=== PATIENT | male | born 1965 | race Two or more races ===

== ENCOUNTER 2017-08-16 08:26 | Emergency (ER) | payer BC ==
[~2017-08-16] VITALS: Ht 167.6 cm; Wt 102.1 kg
--- NOTE | 2017-08-16 08:40 | NUR ---
PRESENTS TO ER C/O LOWER ABDOMINAL PAIN, RADIATES TO BACK. ALSO C/O DIARRHEA ~ 10 DAYS. A/OX 4. BREATHING EVEN AND UNLABORED. NO SOB, NAD, VITALS STABLE. SAFETY AND COMFORT MEASURES IN PLACE. AWAITING MD ORDERS.
--- NOTE | 2017-08-16 09:10 | NUR ---
SUPPORT WORKER AT BEDSIDE FOR BLOOD DRAW
[2017-08-16 09:18] LABS: BASOPHILS % (AUTO) 0.6 % (0.0-2.0); EOSINOPHILS % (AUTO) 6.9 % (0.0-6.0); HEMATOCRIT 41 % (39-51); HEMOGLOBIN 14.3 g/dL (13.5-17.5); LYMPHOCYTES # (AUTO) 1.9 /CMM (0.8-4.8); LYMPHOCYTES % (AUTO) 23.5 % (20.0-44.0); MEAN CORPUSCULAR HGB CONC 35 g/dl (31.0-36.0); MEAN CORPUSCULAR VOLUME 93 fL (80-96); MONOCYTES # (AUTO) 0.8 /CMM (0.1-1.30); PLATELET COUNT (AUTO) 243 /CMM (150-450); RDW COEFFICIENT OF VARIATION 12.3 (11.5-15.0); RED BLOOD CELL COUNT(AUTO) 4.41 MIL/uL (4.5-6.0); WHITE BLOOD COUNT (AUTO) 8.3 K/uL (4.3-11.0)
[2017-08-16 09:20] LABS: APPEARANCE,URINE Clear (CLEAR); BILIRUBIN,URINE Negative (NEGATIVE); BLOOD, URINE Negative Ery/uL (NEGATIVE); COLOR,URINE Yellow (YELLOW); KETONES,URINE Negative (NEGATIVE); LEUKOCYTE ESTERASE ,URINE Negative (NEGATIVE); NITRITE, URINE Negative (NEGATIVE); PROTEIN,URINE 30 mg/dl (NEGATIVE); UGLUCOSE Negative (NEGATIVE); UROBILINOGEN,URINE 0.2 EU/dL (0.2)
--- NOTE | 2017-08-16 09:20 | NUR ---
PATIENT TAKEN TO CT VIA WHEELCHAIR.
[2017-08-16 09:24] LABS: RBC,URINE 0-2 /HPF (0-2); WBC,URINE 0-3 /HPF (0-3)
[2017-08-16 09:25] LABS: BACTERIA,URINE None seen /HPF (None Seen); SQUAMOUS EPITHELIAL CELL,UR Few /HPF (None Seen)
--- NOTE | 2017-08-16 09:27 | NUR ---
PATIENT RETURNED FROM CT IN STABLE CONDITION.
[2017-08-16 09:28] LABS: CALCIUM, SERUM 9.5 mg/dL (8.5-10.1); POTASSIUM 4.1 mmol/L (3.5-5.1)
[2017-08-16 09:33] LABS: ALBUMIN 3.7 g/dL (3.4-5.0); BILIRUBIN,DIRECT 0.1 mg/dL (0.0-0.2); BILIRUBIN,TOTAL 0.6 mg/dL (0.2-1.0); TOTAL PROTEIN, SERUM 8.1 g/dL (6.4-8.2)
[2017-08-16] MEDS ORDERED: KETOROLAC TROMETHAMINE INJ 30 MG/ML VIAL ONE (10:37)
[2017-08-16] MEDS ORDERED: KETOROLAC TROMETHAMINE INJ 60 MG/2 ML VIAL IM ONE (11:00)
[2017-08-16 11:23] VITALS: BP 132/81
--- NOTE | 2017-08-16 11:24 | NUR ---
Patient discharged to home in stable condition. Written and verbal after care instructions given. Patient verbalizes understanding of instruction.
== END 2017-08-16 11:23 | disposition home or self-care (01) ==
LOC: ER 08:40
DX: K57.32 Diverticulitis of large intestine without perforation or abscess without bleeding (principal); I10 Essential (primary) hypertension; E78.5 Hyperlipidemia, unspecified; F17.210 Nicotine dependence, cigarettes, uncomplicated
CPT/HCPCS: 36415; 74176; 80048; 80076; 81001; 83690; 85025; 96372; 99285; A4606; J1885; Z7610; 81000-TC

== ENCOUNTER 2017-11-19 10:34 | Emergency (ER) | payer BC ==
[~2017-11-19] VITALS: Ht 170.2 cm; Wt 83.9 kg
--- NOTE | 2017-11-19 10:59 | NUR ---
URINE SAMPLE COLLECTED
[2017-11-19] MEDS ORDERED: KETOROLAC TROMETHAMINE 15 MG/ML VIAL ONE (11:15)
[2017-11-19] MEDS ORDERED: ONDANSETRON HCL/PF 4 MG/2 ML VIAL ONE (11:15)
[2017-11-19 11:29] LABS: BASOPHILS % (AUTO) 0.7 % (0.0-2.0); EOSINOPHILS % (AUTO) 5.8 % (0.0-6.0); HEMATOCRIT 42 % (39-51); HEMOGLOBIN 14.3 g/dL (13.5-17.5); LYMPHOCYTES # (AUTO) 2.7 /CMM (0.8-4.8); MEAN CORPUSCULAR HGB CONC 34 g/dl (31.0-36.0); MEAN CORPUSCULAR VOLUME 91 fL (80-96); MONOCYTES # (AUTO) 0.5 /CMM (0.1-1.30); MONOCYTES % (AUTO) 9.1 % (2.0-12.0); NEUTROPHILS # (AUTO) 2.2 /CMM (1.8-8.9); NEUTROPHILS % (AUTO) 39.4 % (43.0-81.0); PLATELET COUNT (AUTO) 263 /CMM (150-450); RDW COEFFICIENT OF VARIATION 12.2 (11.5-15.0); WHITE BLOOD COUNT (AUTO) 5.7 K/uL (4.3-11.0)
[2017-11-19] MEDS ORDERED: ONDANSETRON HCL/PF 4 MG/2 ML VIAL IVP ONE (11:30)
[2017-11-19] MEDS ORDERED: KETOROLAC TROMETHAMINE INJ 30 MG/ML VIAL IV ONE (11:30)
[2017-11-19] MEDS ORDERED: IV NS 0.9% 1,000 ML BAG IV ONE (11:30)
[2017-11-19 11:31] LABS: APPEARANCE,URINE Clear (CLEAR); BILIRUBIN,URINE Negative (NEGATIVE); BLOOD, URINE Negative Ery/uL (NEGATIVE); COLOR,URINE Yellow (YELLOW); KETONES,URINE Negative (NEGATIVE); LEUKOCYTE ESTERASE ,URINE Negative (NEGATIVE); NITRITE, URINE Negative (NEGATIVE); PROTEIN,URINE Negative (NEGATIVE); UGLUCOSE Negative (NEGATIVE); UROBILINOGEN,URINE 0.2 EU/dL (0.2)
[2017-11-19 11:39] LABS: CALCIUM, SERUM 9.3 mg/dL (8.5-10.1)
[2017-11-19 11:43] LABS: INR 0.89 (0.85-1.15)
[2017-11-19 11:44] LABS: ALBUMIN 3.9 g/dL (3.4-5.0); BILIRUBIN,DIRECT 0.1 mg/dL (0.0-0.2); BILIRUBIN,TOTAL 0.4 mg/dL (0.2-1.0); TOTAL PROTEIN, SERUM 7.9 g/dL (6.4-8.2)
[2017-11-19] MEDS ORDERED: METRONIDAZOLE 500 MG TABLET ONE (12:58)
[2017-11-19] MEDS ORDERED: CIPROFLOXACIN HCL 500 MG TABLET ONE (12:58)
[2017-11-19] MEDS ORDERED: CIPROFLOXACIN HCL 250 MG TABLET PO ONE (13:00)
[2017-11-19] MEDS ORDERED: METRONIDAZOLE 500 MG TABLET PO ONE (13:00)
[2017-11-19 13:06] VITALS: BP 152/80
--- NOTE | 2017-11-19 13:07 | NUR ---
Patient discharged to home in stable condition. Written and verbal after care instructions given. Patient verbalizes understanding of instruction.IV removed. Catheter intact and site benign. Pressure and 4x4 applied to site. No bleeding noted.
== END 2017-11-19 13:07 | disposition home or self-care (01) ==
LOC: ER 10:36
DX: K57.92 Diverticulitis of intestine, part unspecified, without perforation or abscess without bleeding (principal); I10 Essential (primary) hypertension; F10.10 Alcohol abuse, uncomplicated; F17.200 Nicotine dependence, unspecified, uncomplicated; Y90.9 Presence of alcohol in blood, level not specified
CPT/HCPCS: 36415; 74176; 80048; 80076; 81001; 83690; 85025; 85730; 86850; 96374; 96375; 99285; A4606; J1885; J2405; J7030; Z7610; 81000-TC

== ENCOUNTER 2018-03-04 22:27 | Emergency (ER) | payer BC ==
[~2018-03-04] VITALS: Ht 167.6 cm; Wt 108.4 kg
--- NOTE | 2018-03-04 22:40 | NUR ---
PT PRESENTED TO THE ER WITH A C/O RT EYE DISCOMFORT S/P FEELING ITCHY APPROX 1 HR ZOOKEEPER. PT TOOK VISINE AND BENADRYL PT.
[2018-03-04] MEDS ORDERED: FLUORESCEIN SODIUM OPHTH 1 EA STRIP ONE (23:28)
[2018-03-04] MEDS ORDERED: TETRACAINE HCL/PF 0.5% UD 2 ML BOTTLE ONE (23:28)
[2018-03-04] MEDS ORDERED: TETRACAINE HCL/PF 0.5% UD 2 ML BOTTLE RIGHTEYE ONE (23:30)
[2018-03-04] MEDS ORDERED: FLUORESCEIN SODIUM OPHTH 1 EA STRIP OP ONE (23:30)
[2018-03-04] MEDS ORDERED: TONO PEN in ED SUPPLY ONICELL 1 EA MC ONE (23:30)
--- NOTE | 2018-03-04 23:30 | NUR ---
SLIT LAMP, TETRACAINE, FLOUR-SCENE STRIP, AND ALDEN PEN ARE ALL AT THE BEDSIDE FOR MD.
[2018-03-05 00:45] VITALS: BP 147/89
== END 2018-03-05 00:46 | disposition home or self-care (01) ==
LOC: ER 22:27
DX: H10.11 Acute atopic conjunctivitis, right eye (principal); I10 Essential (primary) hypertension; E78.00 Pure hypercholesterolemia, unspecified; F10.10 Alcohol abuse, uncomplicated; F17.200 Nicotine dependence, unspecified, uncomplicated; Y90.9 Presence of alcohol in blood, level not specified
CPT/HCPCS: 99283; A4606; Z7610

== ENCOUNTER 2020-09-21 20:58 | Inpatient (IN) | payer BC, MEDICAID, MEDICARE ==
[~2020-09-21] VITALS: Ht 167.6 cm; Wt 119.3 kg
--- NOTE | 2020-09-21 21:08 | NUR ---
PT WAS REFERRED FROM AN URGENT CARE HE PRESENTED EARLIER FOR C/O CP FOR FURTHEREVAL ON HIS ABNORMAL EKG AND TO R/O ACS. PT A, OX4, AMBULATORY TO BED 2 ER. REPORTED HX OF COVID 19 BACK IN JANUARY. AND EVER SICNE HAD ON AND OFF CP . THIS GOT WORSENED WHEN HE REC'D HIS FIRST DOSE OF COVID VACCINE ON 09/10/20. PT CURRENTLY W/ CO L SIDED CP, NON RADATING 06/05 , AND OCCASIONAL SOB. PT WAS PLACED IN BED 2 ER , ON A MONITOR . W/ SLIGHT HIGH BP. WILL CONT TO MONITOR
[2020-09-21 21:44] LABS: BASOPHILS # (AUTO) 0.1 K/uL (0.0-0.2); BASOPHILS % (AUTO) 0.9 % (0.0-2.0); EOSINOPHILS % (AUTO) 3.4 % (0.0-6.0); HEMATOCRIT 41 % (39-51); LYMPHOCYTES % (AUTO) 43.4 % (20.0-44.0); MEAN CORPUSCULAR HGB CONC 34 g/dl (31.0-36.0); MEAN CORPUSCULAR VOLUME 93 fL (80-96); MONOCYTES # (AUTO) 0.7 K/uL (0.1-1.30); MONOCYTES % (AUTO) 10.2 % (2.0-12.0); NEUTROPHILS # (AUTO) 2.9 K/uL (1.8-8.9); NEUTROPHILS % (AUTO) 42.1 % (43.0-81.0); PLATELET COUNT (AUTO) 242 K/uL (150-450); WHITE BLOOD COUNT (AUTO) 6.9 K/uL (4.3-11.0)
[2020-09-21 21:53] LABS: CALCIUM, SERUM 9.4 mg/dL (8.5-10.1); POTASSIUM 3.9 mmol/L (3.5-5.1)
[2020-09-21] MEDS ORDERED: ASPIRIN 325 MG TABLET PO ONE (22:30)
--- NOTE | 2020-09-21 22:30 | NUR ---
COVID SWAB COLLECTED AND SENT TO LAB
[2020-09-21] MEDS ORDERED: ASPIRIN 325 MG TABLET ONE (22:34)
--- NOTE | 2020-09-21 22:36 | NUR ---
PER PT. PMD: DR AGOSTO PAGED WITH CALL BACK, PER DR. AGOSTO, GIVE TO EPIC
--- NOTE | 2020-09-21 22:51 | NUR ---
ALEXIA SANTOS SPOKE TO JERALD LEON DNP REGARDING PT ADMISSION.
[2020-09-21] MEDS ORDERED: ONDANSETRON HCL/PF 4 MG/2 ML VIAL IVP PRN (23:00)
[2020-09-21] MEDS ORDERED: Z GUARD REMEDY 2 OZ OINT TP PRN (23:00)
[2020-09-21] MEDS ORDERED: ATORVASTATIN 10 MG TABLET PO SCH (23:00)
[2020-09-21] MEDS ORDERED: INSULIN REGULAR, HUMAN 100 UNIT/ML 3 ML VIAL SQ PRN (23:00)
[2020-09-21] MEDS ORDERED: ACETAMINOPHEN 325 MG TABLET PO PRN (23:00)
[2020-09-21] MEDS ORDERED: DEXTROSE 50%-WATER 50 ML DISP.SYRIN IV PRN (23:00)
[2020-09-21] MEDS ORDERED: MAG HYDROX/AL HYDROX/SIMETH 30 ML UDC PO PRN (23:00)
[2020-09-21] MEDS ORDERED: BLOOD SUGAR DIAGNOSTIC 1 EACH STRIP IN SCH (23:00)
[2020-09-21] MEDS ORDERED: ZOLPIDEM TARTRATE 5 MG TABLET PO PRN (23:00)
--- NOTE | 2020-09-21 23:57 | NUR ---
TELE 328-5
--- NOTE | 2020-09-22 00:03 | NUR ---
REPORT GIVEN TO PAVEL STUART
--- NOTE | 2020-09-22 00:22 | NUR ---
PATIENT TRANSFERRED UNDER ACLS
[2020-09-22 00:30] VITALS: BP 141/94
--- NOTE | 2020-09-22 00:30 | NUR ---
FORESTRY WORKERLOGISTICIAN NOTE PT TRANSPORTED VIA GURNEY TO UNIT AT THIS TIME. PT ADMITTED TO TELE UNDER JERALD LEON NP FOR ADMITTING DX OF NSTEMI. A/O X4. PT STABLE ON ROOM AIR. NO SOB OR S/S OF RESPIRATORY DISTRESS NOTED. PT ON EXTERNAL RN TRANSITION READING SR AT 86 BPM. PT HAS NO C/O PAIN OR DISCOMFORT AT THIS TIME. PT IS AMBULATORY WITH BRP. IV ACCESS IN LAC #20, INTACT AND PATENT. PT ORIENTED TO STAFF, ROOM, AND UNIT. SAFETY PRECAUTIONS MAINTAINED. BED IN LOWEST LOCKED POSITION, HOB ELEVATED, SIDE RAILS UP X2. CALL LIGHT AND TABLE WITHIN REACH. WILL CONTINUE TO MONITOR.
[2020-09-22 04:00] VITALS: BP 139/96
[2020-09-22 05:36] LABS: MAGNESIUM 1.8 mg/dL (1.8-2.4); PHOSPHORUS 5.1 mg/dL (2.5-4.9)
--- NOTE | 2020-09-22 06:37 | NUR ---
SPECIMEN TECHNICIAN CLOSING NOTE PT IS AWAKE IN BED. A/O X4. PT STABLE ON ROOM AIR. NO SOB OR S/S OF RESPIRATORY DISTRESS NOTED. PT ON EXTERNAL AUTOMOBILE ACCESSORIES SALESPERSON READING SR AT 83 BPM WITH OCCASIONAL PVCs. PT HAS NO C/O PAIN OR DISCOMFORT AT THIS TIME. IV ACCESS IS INTACT, PATENT, AND FLUSHING WELL. ALL NEEDS HAVE BEEN MET. SAFETY PRECAUTIONS MAINTAINED AT ALL TIMES. BED IN LOWEST LOCKED POSITION, HOB ELEVATED, SIDE RAILS UP X2. CALL LIGHT AND TABLE WITHIN REACH. WILL ENDORSE TO ONCOMING NURSE FOR ZORAIDA.
--- NOTE | 2020-09-22 07:30 | NUR ---
PT RECEIVED RESTING COMFORTABLY IN BED. NO S/S OR C/O PAIN OR DISTRESS NOTED. SIDE RAILS UP X2, ALL LIGHT LEFT WITHIN REACH. WILL CONTINUE PLAN OF CARE.
[2020-09-22] MEDS ORDERED: AMLO-213 PO (07:45)
[2020-09-22] MEDS ORDERED: ASPI-1169 PO (07:45)
[2020-09-22] MEDS ORDERED: ENOXAPARIN SODIUM 40 MG/0.4 ML DISP.SYRIN SQ ONE (09:00)
[2020-09-22 09:28] VITALS: BP 111/77
[2020-09-22] MEDS ORDERED: IV NS 0.9% 250 ML IV ONE (11:09)
[2020-09-22] MEDS ORDERED: IOHEXOL-350 100 ML VIAL IV ONE (11:09)
[2020-09-22] MEDS ORDERED: CT SWABBABLE VALVE TRANS SET 1 EA INFUS.SET MC ONE (11:09)
[2020-09-22] MEDS ORDERED: METOPROLOL TARTRATE INJ 5 MG/5 ML AMPUL ONE ×3 (11:09→11:43)
[2020-09-22] MEDS ORDERED: NITROGLYCERIN 0.4 MG/TAB BOTTLE ONE (11:09)
[2020-09-22] MEDS: METOPROLOL TARTRATE INJ 5 MG/5 ML AMPUL IVP PRN ×10 (11:20→12:04)
[2020-09-22] MEDS ORDERED: NITROGLYCERIN 0.4 MG/TAB BOTTLE SL ONE (11:30)
--- NOTE | 2020-09-22 12:05 | NUR ---
RN NOTES; s/p cta, patient able to tolerate the procedure. No distress noted at this time.
[2020-09-22] MEDS: ASPIRIN 81 MG TAB.CHEW PO SCH (12:47)
[2020-09-22] MEDS: METOPROLOL TARTRATE 50 MG TABLET PO SCH ×3 (12:48→23:42)
[2020-09-22] MEDS: ENOXAPARIN SODIUM 100 MG/ML DISP.SYRIN SQ SCH ×2 (12:48→21:00)
[2020-09-22] MEDS ORDERED: METO25TA20 PO (13:16)
[2020-09-22] MEDS ORDERED: METF500S7 PO (13:20)
[2020-09-22] MEDS ORDERED: ATOR40TA PO (13:23)
[2020-09-22 16:19] VITALS: BP 117/65
[2020-09-22] MEDS ORDERED: METF-440 PO ×4 (16:21→16:41)
--- NOTE | 2020-09-22 18:52 | NUR ---
CHANGE OF SHIFT REPORT PT RESTING COMFORTABLY IN BED. NO S/S OR C/O PAIN OR DISTRESS NOTED. SIDE RAILS UP X2, CALL LIGHT LEFT WITHIN REACH. PT KEPT CLEAN, DRY, AND COMFORTABLE. NO SIGNIFICANT CHANGES SINCE PREVIOUS SHIFT. WILL GIVE REPORT TO REED ZHAO.
--- NOTE | 2020-09-22 19:30 | NUR ---
RN OPENING NOTE PATIENT IS SITTING AT THE EDGE OF THE BED WITH WIDE AND DAUGHTER AT BEDSIDE. PATIENT IS S ABLE TO MAKE NEEDS KNOWN,. A/O X 4. PATIENT DOES NOT COMPLAIN OF ANY CHEST PAIN AT THIS TIME. PATIENT IS CURRENTLY ON RA TOLERATING AT 99% O2 SATURATION, BREATHING EVEN AND UNLABORED. PATIENT'S IV ACCES LAC 20 G PATIENT AND INTACT. ANNETTE RN ENDORSE HEART CATH FOR TOMORROW WITH DR. PATE, PATIENT TO BE PUT NPO POST MIDNIGHT. SAFETY MEASURES IN PLACE: BED LOCKED IN LOWEST POSITION, CALL LIGHT WITHIN REACH, SIDE RAILS UP. WILL MONITOR PATIENT CLOSELY. Addendum: 09/22/20 at 2302 by TRES PARADA RN TELE MONITOR READS SR 68 BPM
[2020-09-22 20:00] VITALS: BP 146/96
[2020-09-22] MEDS: ATORVASTATIN 10 MG TABLET PO SCH (21:21)
--- NOTE | 2020-09-22 21:25 | NUR ---
DARCIE HELD D/T SCHEDULED HEART CATH TOMORROW IN AM WITH DR. PATE
--- NOTE | 2020-09-22 22:01 | NUR ---
RN NOTE PROCEDURE AND ANESTHESIA CONSENT OBTAINED FOR HEART CATH PROCEDURE IN AM.
[2020-09-23] VITALS (16 sets, daily range): BP systolic 114–161; BP diastolic 70–92
[2020-09-23] MEDS: METOPROLOL TARTRATE 50 MG TABLET PO SCH ×3 (05:48→17:54)
[2020-09-23 06:50] LABS: BASOPHILS % (AUTO) 0.8 % (0.0-2.0); EOSINOPHILS % (AUTO) 4.1 % (0.0-6.0); HEMATOCRIT 41 % (39-51); HEMOGLOBIN 14.2 g/dL (13.5-17.5); LYMPHOCYTES # (AUTO) 2.1 K/uL (0.8-4.8); LYMPHOCYTES % (AUTO) 41.1 % (20.0-44.0); MEAN CORPUSCULAR HGB CONC 35 g/dl (31.0-36.0); MEAN CORPUSCULAR VOLUME 93 fL (80-96); MONOCYTES # (AUTO) 0.5 K/uL (0.1-1.30); MONOCYTES % (AUTO) 9.1 % (2.0-12.0); NEUTROPHILS # (AUTO) 2.3 K/uL (1.8-8.9); NEUTROPHILS % (AUTO) 44.9 % (43.0-81.0); PLATELET COUNT (AUTO) 225 K/uL (150-450); RED BLOOD CELL COUNT(AUTO) 4.42 MIL/uL (4.5-6.0); WHITE BLOOD COUNT (AUTO) 5.2 K/uL (4.3-11.0)
--- NOTE | 2020-09-23 06:52 | NUR ---
RN CLOSING NOTE PATIENT IS IN BED, SLEEPING. EASILY AROUSED. PATIENT DOES NOT COMPLAIN OF ANY CHEST PAIN AT THIS TIME. TELE MONITOR READS SR 72 BPM. A/O X 4. PATIENT'S NPO STATUS MAINTAINED FOR SCHEDULED CARDIAC CATH AT [address] PATE. ALL CONSENTS AND SX CHECKLIST COMPLETED. IV ACCESS PATENT AND INTACT. BREATHING EVEN AND UNLABORED, ALL ORDERS CARRIED OUT. SAFETY MEASURES IMPLEMENTED. WILL ENDORSE TO DAY SHIFT NURSE FOR ZORAIDA.
[2020-09-23] MEDS ORDERED: IODIXANOL 300 ML IV ONE (07:38)
[2020-09-23] MEDS ORDERED: IV NS 0.9% 1,000 ML ONE (07:38)
[2020-09-23] MEDS ORDERED: LIDOCAINE HCL/MPF 1% 30 ML VIAL IJ ONE (07:39)
[2020-09-23 07:46] LABS: ALBUMIN 3.2 g/dL (3.4-5.0); BILIRUBIN,TOTAL 0.5 mg/dL (0.2-1.0); CALCIUM, SERUM 8.9 mg/dL (8.5-10.1); MAGNESIUM 1.8 mg/dL (1.8-2.4); POTASSIUM 4.2 mmol/L (3.5-5.1); TOTAL PROTEIN, SERUM 7.8 g/dL (6.4-8.2)
--- NOTE | 2020-09-23 07:49 | NUR ---
RN OPENING NOTE PT AWAKE IN BED RESTNG. ON RA WITH NO SOB OR RESPIRATORY DISTRESS PRESENT. A/O X4 AND EAST TIMORESE/SERBIAN SPEAKING. NO COMPLAINT OF PAIN OR NAUSEA PRESENT. ON WRAPPING MACHINE TENDER. NO EDEMA PRESENT. SELF AMBULATORY WITH BATHROOM PRIVILEGES. SCABS PRESENT ON BILATERAL UPPER AND LOWER EXTREMITIES. NPO POST MIDNIGHT FOR UPCOMING PROCEDURE. IV PRESENT ON L AC 20G AND FLUSHES WELL. SAFETY MEASURES IN PLACE. SIDE RAILS RAISED. BED LOWERED. CALL LIGHT WITHIN REACH. WILL CONTINUE TO MONITOR.
[2020-09-23] MEDS: ENOXAPARIN SODIUM 100 MG/ML DISP.SYRIN SQ SCH (08:07)
[2020-09-23] MEDS: ASPIRIN 81 MG TAB.CHEW PO SCH (08:07)
--- NOTE | 2020-09-23 08:45 | NUR ---
RN NOTE PT BROUGHT DOWN TO CORK INSULATION SETTER FOR PROCEDURE.
[2020-09-23] MEDS ORDERED: FENTANYL PF 100MCG/2ML AMPUL ONE ×2 (08:50→10:27)
[2020-09-23] MEDS ORDERED: MIDAZOLAM HCL 2 MG/2ML VIAL ONE (08:50)
[2020-09-23] MEDS ORDERED: NITROGLYCERIN IN 5 % DEXTROSE 250 ML IV ONE (09:01)
[2020-09-23] MEDS ORDERED: HEPARIN SODIUM, PORCINE 5000 UNITS/1 ML VIAL ONE (09:41)
[2020-09-23] MEDS ORDERED: IODIXANOL 320MG/ML 50 ML IV ONE (09:42)
[2020-09-23] MEDS ORDERED: TICAGRELOR 90 MG TABLET PO ONE (10:09)
--- NOTE | 2020-09-23 11:30 | NUR ---
CLINICAL BUSINESS MANAGER RECEIVED PT FROM REPAIR ORDER CLERK BY VIRGIL. REPORT RECEIVED. PT AWAKE AND ALERT, FOLLOWING COMMANDS. TR BAND ON RIGHT WRIST INTACT WITH NO DRAINAGE SEEN AT PUNCTURE SITE. RIGHT FEMORAL SHEATH IN PLACE. INSTRUCTED PT NOT TO BEND RLE.
[2020-09-23] MEDS ORDERED: IV NS 0.9% 1,000 ML IV PRN (14:00)
--- NOTE | 2020-09-23 14:30 | NUR ---
SANDER OPERATOR FEMORAL SHEATH REMOVED BY PRINCIPAL LIBRARIAN TEAM. PRESSURE DRESSING IN PLACE. DISTAL PULSES PALPABLE. RLE WARM AND DRY.
--- NOTE | 2020-09-23 15:15 | NUR ---
CIDER MAKER RIGHT FEMORAL SITE DRSG INTACT, NO BLEEDING SEEN. TR BAND REMOVED. CLEAR DRESSING PLACED. NO BLEEDING SEEN. INSTRUCTED PT NOT TO BEND LEG.
--- NOTE | 2020-09-23 18:00 | NUR ---
VISUAL DEVELOPER REMAINED AWAKE AND ALERT. RIGHT RADIAL SITE CLEAN AND DRY. RIGHT FEMORAL SITE CLEAN AND DRY.
--- NOTE | 2020-09-23 19:30 | NUR ---
RN NOTES Received patient in bed AOX4, on RA no s/s of SOB noted. Breathing normal respiration even non labored. Denies any pain or discomfort. Tele monitor shows SR in 80's. Abdomen soft and non distended. IV on LAC 20G SL flushes well. Skin warm and dry to touch. All safety measures in place, call light within reach. Will cont to monitor for lindsay.
[2020-09-23] MEDS: ATORVASTATIN 10 MG TABLET PO SCH (21:45)
[2020-09-23] MEDS ORDERED: CLOPIDOGREL BISULFATE 300 MG TABLET PO ONE (22:00)
--- NOTE | 2020-09-23 22:00 | NUR ---
RN NOTE Plavix 600mg was not available, propellant charge loader pulled Stocked 75mg Plavix 8 tablets.
[2020-09-23] MEDS ORDERED: CLOPIDOGREL BISULFATE 75 MG TABLET ONE (22:45)
[2020-09-24] VITALS (12 sets, daily range): BP systolic 108–144; BP diastolic 57–105
[2020-09-24] MEDS: METOPROLOL TARTRATE 50 MG TABLET PO SCH ×2 (00:05→06:14)
[2020-09-24 04:25] LABS: BASOPHILS % (AUTO) 0.5 % (0.0-2.0); EOSINOPHILS % (AUTO) 2.6 % (0.0-6.0); HEMATOCRIT 39 % (39-51); HEMOGLOBIN 13.5 g/dL (13.5-17.5); LYMPHOCYTES # (AUTO) 1.6 K/uL (0.8-4.8); LYMPHOCYTES % (AUTO) 28.1 % (20.0-44.0); MEAN CORPUSCULAR HGB CONC 35 g/dl (31.0-36.0); MEAN CORPUSCULAR VOLUME 94 fL (80-96); MONOCYTES # (AUTO) 0.6 K/uL (0.1-1.30); NEUTROPHILS # (AUTO) 3.3 K/uL (1.8-8.9); NEUTROPHILS % (AUTO) 58.8 % (43.0-81.0); PLATELET COUNT (AUTO) 208 K/uL (150-450); RED BLOOD CELL COUNT(AUTO) 4.15 MIL/uL (4.5-6.0); WHITE BLOOD COUNT (AUTO) 5.6 K/uL (4.3-11.0)
[2020-09-24 04:57] LABS: ALBUMIN 3.1 g/dL (3.4-5.0); BILIRUBIN,TOTAL 0.6 mg/dL (0.2-1.0); CALCIUM, SERUM 8.7 mg/dL (8.5-10.1); CREATININE 0.8 mg/dL (0.6-1.3); MAGNESIUM 1.9 mg/dL (1.8-2.4); PHOSPHORUS 4.3 mg/dL (2.5-4.9); TOTAL PROTEIN, SERUM 7.7 g/dL (6.4-8.2)
--- NOTE | 2020-09-24 07:02 | NUR ---
RN NOTES No changes noted during shift. Breathing normal no SOB, no s/s of acute distress noted. IV site intact flushes well. Denies any pain or discomfort. Rt femoral/ site clean dry no s/s of bleeding noted. Kept clean dry and comfortable. All safety measures in place, call light within reach. Will endorse to AM nurse for ZORAIDA.
--- NOTE | 2020-09-24 07:30 | NUR ---
OPENING NOTE: REPORT RECEIVED FROM GABBY ZHAO. PT ALERT OX3. HEART CATH YESTERDAY. RIGHT GROIN APPROACH, CDI, NO SWELLING OR DRAINAGE NOTED. PT CHECKED ON HOURLY AND PRN BY NURSING STAFF.
[2020-09-24] MEDS ORDERED: METOPROLOL SUCCINATE 50 MG TAB.SR.24H PO SCH (08:00)
[2020-09-24] MEDS: ASPIRIN 81 MG TAB.CHEW PO SCH (08:43)
[2020-09-24] MEDS ORDERED: CLOPIDOGREL BISULFATE 75 MG TABLET PO SCH (09:00)
--- NOTE | 2020-09-24 09:41 | NUR ---
REPORT CALLED TO IMMACULATE RN FOR PT TRANSFER TO ROOM 329
--- NOTE | 2020-09-24 10:20 | NUR ---
RN NOTES PATIENT TRANSPORTED BY TO ROOM 329-1 FROM ICU PER PROTOCOL IN PLACE. RECEIVED REPORT FROM PAVEL [email or web address]. AOX4. YORUBA/SWISS SPEAKING, NO SOB NOTED, NO S/O OF ANY ACUTE DISTRESS NOTED, NO C/O PAIN AT THIS. BREATHING EVEN AND UNLABORED. STABLE ON RA. IV ACCESS IN LAC G#20, INTACT, PATENT AND FLUSHING WELL. SAFETY PRECAUTIONS IN PLACE AND MAINTAINED AT ALL TIMES. BED IN LOWEST LOCKED POSITION, HOB ELEVATED, SIDE RAILS UP X2, CALL LIGHT AND TABLE WITHIN REACH. WILL CONTINUE TO MONITOR
--- NOTE | 2020-09-24 19:00 | NUR ---
LITHOGRAPHY CONTACT WORKER NOTED PT DISCHARGE HOME AT THIS TIME. PT MEDICALLY STABLE AND CLEARED FOR DISCHARGE BY DR MONROY. ALL DISCHARGE INSTRUCTIONS PROVIDED TO PT,DAUGHTER AND AT BEDSIDE. PT VERBALIZED UNDERSTANDING. PT KEPT CLEAN AND DRY. ALL BELONGINGS WITH PATIENT, SIGNED BY PATIENT AND WITH PATIENT. IV ACCESS REMOVED, PRESSURE APPLIED, SECURED WITH GAUZE AND TAPE, NO SIGN OF BLEEDING OR INFILTRATION NOTED. ID BAND REMOVED. PICTURE TAKEN AND FILED. PT LEFT UNIT IN STABLE CONDITION, TRANSPORTED BY WHEEL CHAIR TO [facility] BY CNA. PONCE DEL RIO, CHARGE NURSE AND DR MONROY AWARE
== END 2020-09-24 18:48 | disposition home or self-care (01) | DRG 174 ==
LOC: ER 21:04 → TELE 23:58 → ICU 09-23 11:45 → MED 09-24 10:10
PROVIDERS: ADMIT Nurse Practitioner Acute Care
PROC: 027034Z Dilation of Coronary Artery, One Artery with Drug-eluting Intraluminal Device, Percutaneous Approach (ICD-10-PCS; principal; 2020-09-23)
PROC: 4A023N7 Measurement of Cardiac Sampling and Pressure, Left Heart, Percutaneous Approach (ICD-10-PCS; 2020-09-23)
PROC: B211YZZ Fluoroscopy of Multiple Coronary Arteries using Other Contrast (ICD-10-PCS; 2020-09-23)
PROC: B215YZZ Fluoroscopy of Left Heart using Other Contrast (ICD-10-PCS; 2020-09-23)
PROC: B41FYZZ Fluoroscopy of Right Lower Extremity Arteries using Other Contrast (ICD-10-PCS; 2020-09-23)
DX: I21.4 Non-ST elevation (NSTEMI) myocardial infarction (principal); D68.59 Other primary thrombophilia; E66.01 Morbid (severe) obesity due to excess calories; E11.65 Type 2 diabetes mellitus with hyperglycemia; Z68.41 Body mass index [BMI] 40.0-44.9, adult; I25.10 Atherosclerotic heart disease of native coronary artery without angina pectoris; I16.0 Hypertensive urgency; Z86.16 Personal history of COVID-19; I10 Essential (primary) hypertension; Z20.822 Contact with and (suspected) exposure to COVID-19; E78.00 Pure hypercholesterolemia, unspecified; E78.5 Hyperlipidemia, unspecified; Z87.891 Personal history of nicotine dependence; Z87.19 Personal history of other diseases of the digestive system; Z98.890 Other specified postprocedural states; G47.33 Obstructive sleep apnea (adult) (pediatric)
CPT/HCPCS: 36415; 71045-TC; 75574; 80048-TC; 80053-TC; 80061-TC; 83735-TC; 84100-TC; 84484-TC; 85025-TC; 85610-TC; 85730-TC; 87081-TC; 92980; 93307-TC; A6403; C1725; C1769; C1887; C1894; C9803; G0378; G0500; J1644; J1650; J2250; J3010; J3490; J7030; J7050; Q9967

== ENCOUNTER 2021-09-07 11:55 | Inpatient (IN) | payer MEDICAID, OTHER ==
[~2021-09-07] VITALS: Ht 167.6 cm; Wt 113.4 kg
[~2021-09-07 11:55] MED LIST: AMLO-213 PO; ASPI-1169 PO; ATOR40TA PO; METF-440 PO; METO25TA20 PO
--- NOTE | 2021-09-07 12:09 | NUR ---
TO ER BED 7. BIB DAUGHTER C/O CHEST PAIN X1 WEEK AND GOT WORSE TODAY. PT HAS HX OF HIGH BLOOD PRESSURE, COMPLIANT WITH MEDCATION. PT ATTCHED TO MONITOR. DR POSADA AT BEDSIDE, AWAITING MD ORDERS.
[2021-09-07 12:51] LABS: BASOPHILS # (AUTO) 0.1 K/uL (0.0-0.2); BASOPHILS % (AUTO) 0.9 % (0.0-2.0); EOSINOPHILS % (AUTO) 2.3 % (0.0-6.0); HEMATOCRIT 39 % (39-51); HEMOGLOBIN 13.1 g/dL (13.5-17.5); LYMPHOCYTES # (AUTO) 2.2 K/uL (0.8-4.8); LYMPHOCYTES % (AUTO) 34.1 % (20.0-44.0); MEAN CORPUSCULAR HGB CONC 34 g/dl (31.0-36.0); MEAN CORPUSCULAR VOLUME 91 fL (80-96); MONOCYTES # (AUTO) 0.5 K/uL (0.1-1.30); MONOCYTES % (AUTO) 8.3 % (2.0-12.0); NEUTROPHILS # (AUTO) 3.5 K/uL (1.8-8.9); NEUTROPHILS % (AUTO) 54.4 % (43.0-81.0); PLATELET COUNT (AUTO) 208 K/uL (150-450); RED BLOOD CELL COUNT(AUTO) 4.25 MIL/uL (4.5-6.0); WHITE BLOOD COUNT (AUTO) 6.5 K/uL (4.3-11.0)
[2021-09-07] MEDS ORDERED: NITROGLYCERIN PACKET 1 GM PACKET ONE (13:14)
[2021-09-07] MEDS ORDERED: NITR0.4T48 SL (13:19)
[2021-09-07] MEDS ORDERED: ASPI-1420 PO (13:19)
[2021-09-07] MEDS ORDERED: CLOP75TA15 PO (13:19)
[2021-09-07] MEDS ORDERED: SITA1TAB6 PO (13:19)
[2021-09-07] MEDS ORDERED: ATOR40TA PO (13:19)
[2021-09-07] MEDS ORDERED: CYAN100096 PO (13:20)
[2021-09-07] MEDS ORDERED: CHOL100043 PO (13:20)
[2021-09-07 13:21] LABS: CALCIUM, SERUM 9.4 mg/dL (8.5-10.1); CHLORIDE 103 mmol/L (98-107); CREATININE 0.9 mg/dL (0.6-1.3); GLUCOSE 95 mg/dL (74-106); POTASSIUM 3.8 mmol/L (3.5-5.1); SODIUM SERUM 139 mmol/L (136-145); UREA NITROGEN, BLOOD 14 mg/dL (7-18)
[2021-09-07] MEDS ORDERED: hydrALAZINE HCL IV 20 MG VIAL ONE (13:22)
[2021-09-07] MEDS ORDERED: NITROGLYCERIN PACKET 1 GM PACKET TD ONE (13:30)
[2021-09-07] MEDS ORDERED: hydrALAZINE HCL IV 20 MG VIAL IV ONE (13:30)
--- NOTE | 2021-09-07 13:30 | NUR ---
COVID TEST COLLECTED AND SENT
--- NOTE | 2021-09-07 13:30 | NUR ---
DR PATE AT BEDSIDE
[2021-09-07 13:31] LABS: CARBON DIOXIDE 27 mmol/L (21-32)
--- NOTE | 2021-09-07 13:46 | NUR ---
ALEXIA POSADA AND DR. AGOSTO CONSULT
--- NOTE | 2021-09-07 13:54 | NUR ---
CONSENT FOR LEFT HEART CATHETERIZATION AND POSSIBLE PERCUTANEOUS CORONARY INTERVENTION, FORM PLACED IN PT'S CHART.
--- NOTE | 2021-09-07 14:08 | NUR ---
[facility] [phone] ext [phone] AND PROVIDED W CLINICALS.
--- NOTE | 2021-09-07 14:08 | NUR ---
DR AGOSTO AT BEDSIDE
[2021-09-07] MEDS ORDERED: hydrALAZINE HCL IV 20 MG VIAL IV PRN (14:30)
[2021-09-07] MEDS ORDERED: MORPHINE SULFATE INJ 2 MG/ML DISP.SYRIN IV PRN (14:30)
[2021-09-07] MEDS ORDERED: *INSULIN REGULAR(HUMULIN R)HUM 100 UNIT/ML VIAL SQ PRN (14:30)
[2021-09-07] MEDS ORDERED: ACETAMINOPHEN 325 MG TABLET PO PRN (14:30)
[2021-09-07] MEDS: BLOOD SUGAR DIAGNOSTIC 1 EACH STRIP VI SCH ×3 (14:30→21:25)
[2021-09-07] MEDS: METOPROLOL TARTRATE 25 MG TABLET PO SCH ×2 (14:30→17:24)
[2021-09-07] MEDS ORDERED: ONDANSETRON HCL/PF 4 MG/2 ML VIAL IVP PRN (14:30)
[2021-09-07] MEDS ORDERED: HEPARIN INFUSION/D5W 500 ML IV PRN (14:30)
[2021-09-07] MEDS ORDERED: HYDROCODONE/APAP 5/325MG TABLET PO PRN (14:30)
[2021-09-07] MEDS ORDERED: DEXTROSE 50%-WATER 50 ML DISP.SYRIN IV PRN (14:30)
--- NOTE | 2021-09-07 14:47 | NUR ---
BED 322-1 NURSE JESSE
--- NOTE | 2021-09-07 14:53 | NUR ---
REPORT GIVRN TO JESSE ZHAO OF TELE UNIT
--- NOTE | 2021-09-07 16:30 | NUR ---
GROUNDS SUPERVISOR NOTE RECEIVED PATIENT FROM ER
--- NOTE | 2021-09-07 16:30 | NUR ---
ENGINEERING INSTRUCTOR NOTE PATIENT RECEIVED FROM ER ACCOMPANIED BY 2 NURSES TRANSPORTED VIA [place]. PATIENT ABLE TO TRANSFER FROM [place] TO BED WITH LITTLE ASSISTANCE. PATIENT IS ALERT AND ORIENTED X 4. ON ROOM AIR, WITH EQUAL AND UNLABORED BREATHING, WITH NO SIGNS AND SYMPTOMS OF SOB / DISTRESS NOTED. PATIENT WITH IV ACCESS ON LEFT AC G 18, PATENT AND INTACT. SAFETY MEASURES ENSURED WITH LED IN LOWEST LOCKED POSITION, SIDERAILS RAISED AND CALL LIGHT WITHIN REACH AT ALL TIMES. PATIENT INQUIRY DONE AND ADMISSION TEACHINGS DONE INCLUDING DISEASE PROCESS. NOT IN DISTRESS. WILL CONTINUE TO MONITOR.
--- NOTE | 2021-09-07 17:00 | NUR ---
PLATE TAKE OUT WORKER NOTE WITH ORDER TO START HEPARIN DRIP NO PTT YET. LAB ORDERED INDICATED. IN STABLE CONDITION.
[2021-09-07] MEDS: NITROGLYCERIN 0.1 MG/HR PATCH.TD24 TD SCH (17:22)
[2021-09-07] MEDS: DOCUSATE SODIUM 100 MG CAPSULE PO SCH (17:24)
[2021-09-07] MEDS ORDERED: HEPARIN SODIUM, PORCINE 5000 UNITS/1 ML VIAL IV ONE (18:30)
--- NOTE | 2021-09-07 19:10 | NUR ---
RESIDENTIAL CONSTRUCTION INSTRUCTOR CLOSING NOTE PATIENT IS ALERT AND ORIENTED X 4. ON ROOM AIR, WITH EQUAL AND UNLABORED BREATHING, WITH NO SIGNS AND SYMPTOMS OF SOB / DISTRESS NOTED. PATIENT WITH IV ACCESS ON LEFT AC G 18, WITH HEPARIN DRIP RUNNING AT 1200U/HR ORDERED, INFUSING WELL. HEALTH TEACHING DONE REGARDING HEPARIN AND SIGNS AND SYMPTOMS OF BLEEDING. NO S/S OF BLEEDING NOTED. NEEDS ATTENDED. SAFETY MEASURES ENSURED WITH LED IN LOWEST LOCKED POSITION, SIDERAILS RAISED AND CALL LIGHT WITHIN REACH AT ALL TIMES. ENDORSED PATIENT TO NEXT SHIFT FOR CONTINUITY OF CARE.
--- NOTE | 2021-09-07 19:15 | NUR ---
CONDENSER TUBE TENDER NOTE WITH ORDER TO START HEPARIN. HEPARIN STARTED ORDERED PER FACILITY PROTOCOL. NO SIGNS AND SYMPTOMS OF BLEEDING NOTED. IN STABLE CONDITION.
[2021-09-07 20:00] VITALS: BP 124/75
[2021-09-07 20:30] VITALS: BP 124/75
--- NOTE | 2021-09-07 21:27 | NUR ---
ACCU CHECK FSBG 107mg/dl. Hold insulin dose per level ordered.
[2021-09-07] MEDS ORDERED: ATORVASTATIN 40 MG TABLET PO SCH (22:00)
[2021-09-08] VITALS (8 sets, daily range): BP systolic 115–132; BP diastolic 62–83
--- NOTE | 2021-09-08 02:30 | NUR ---
HEPARIN DRIP PTT 57.2 No change per Heparin protocol. Next PTT 09/09/21 at 0100.
--- NOTE | 2021-09-08 06:14 | NUR ---
END OF SHIFT REPORT Patient is Alert Oriented x4. Sinus rhythm in the Tele monitor, HR 64. On Heparin drip 1200 u/h at 24ml/hr. No bleeding, denies any pain. NPO except medication since 0000. Plan for Left heart cath possible PCI, patient consented procedure.
[2021-09-08] MEDS: INSULIN REGULAR, HUMAN 100 UNIT/ML 3 ML VIAL SQ PRN ×3 (06:43→16:34)
[2021-09-08] MEDS: BLOOD SUGAR DIAGNOSTIC 1 EACH STRIP VI SCH ×3 (06:44→16:33)
--- NOTE | 2021-09-08 06:44 | NUR ---
ACCU CHECK FSBG 104mg/dl. Hold insulin dose per level ordered.
--- NOTE | 2021-09-08 07:05 | NUR ---
ULTIMATE HOOPS TRAINER OPENING NOTES RECEIVED PATIENT RESTING IN BED, EASILY AROUSED. A/O x4, ON ROOM AIR NO S/S OF RESPIRATORY DISTRESS OR DISCOMFORT. PATIENT IS ON TELE MONITORING, SINUS RHYTHM AT THIS TIME, HR 66, NO S/S OF CARDIAC DISTRESS. NO PAIN OR DISCOMFORT NOTED OR VERBALIZED AT THIS TIME. IV ACCESS L AC 18G WITH HEPARIN RUNNING 1200 UNITS @ 24ML/HR, INTACT AND PATENT, NO S/S OF BLEEDING OR INFILTRATION AT THIS TIME. AMBULATORY AND CONTINENT HAS BATHROOM PRIVILEGE. SKIN IS INTACT. CURRENTLY NPO EXPECT MEDICATION AT THIS TIME FOR POSSIBLE L HEART CATH PCI. SAFETY MEASURES IN PLACE AT THIS TIME: BED LOCKED AND IN LOWEST POSITION, SIDE RAILS UP x2, CALL LIGHT WITHIN REACH. HEAD OF THE BED ELEVATED. WILL CONTINUE TO MONITOR.
[2021-09-08 07:21] LABS: THYROID STIMULATING HORMONE 2.436 uIU/mL (0.358-3.74)
[2021-09-08 07:30] LABS: BASOPHILS % (AUTO) 0.4 % (0.0-2.0); EOSINOPHILS % (AUTO) 2.6 % (0.0-6.0); HEMATOCRIT 39 % (39-51); HEMOGLOBIN 13.6 g/dL (13.5-17.5); LYMPHOCYTES % (AUTO) 29.5 % (20.0-44.0); MEAN CORPUSCULAR HGB CONC 35 g/dl (31.0-36.0); MEAN CORPUSCULAR VOLUME 91 fL (80-96); MONOCYTES # (AUTO) 0.6 K/uL (0.1-1.30); MONOCYTES % (AUTO) 8.5 % (2.0-12.0); NEUTROPHILS # (AUTO) 3.9 K/uL (1.8-8.9); PLATELET COUNT (AUTO) 224 K/uL (150-450); RED BLOOD CELL COUNT(AUTO) 4.35 MIL/uL (4.5-6.0); WHITE BLOOD COUNT (AUTO) 6.7 K/uL (4.3-11.0)
[2021-09-08] MEDS ORDERED: PANTOPRAZOLE 40 MG TABLET.DR PO SCH (07:30)
[2021-09-08 07:34] LABS: ALBUMIN 3.7 g/dL (3.4-5.0); BILIRUBIN,TOTAL 0.5 mg/dL (0.2-1.0); CALCIUM, SERUM 9.6 mg/dL (8.5-10.1); CREATININE 0.9 mg/dL (0.6-1.3); MAGNESIUM 2.2 mg/dL (1.8-2.4); PHOSPHORUS 4.3 mg/dL (2.5-4.9); POTASSIUM 3.9 mmol/L (3.5-5.1); TOTAL PROTEIN, SERUM 7.6 g/dL (6.4-8.2)
[2021-09-08] MEDS: METOPROLOL TARTRATE 25 MG TABLET PO SCH ×2 (08:16→16:28)
[2021-09-08] MEDS: DOCUSATE SODIUM 100 MG CAPSULE PO SCH ×2 (08:17→16:27)
--- NOTE | 2021-09-08 08:50 | NUR ---
RN NOTES PATIENT TRANSPORTED FOR L HEART CATHETERIZATION. PATIENT LEFT UNIT @7776 ACCOMPANIED BY 3 STAFF.
[2021-09-08] MEDS ORDERED: IV SET PRIMARY PUMP SET 1 EA INFUS.SET MC ONE (08:54)
[2021-09-08] MEDS ORDERED: IV NS 0.9% 1,000 ML ONE (08:54)
[2021-09-08] MEDS ORDERED: NITROGLYCERIN IN 5 % DEXTROSE 250 ML IV ONE (08:55)
[2021-09-08] MEDS ORDERED: LIDOCAINE 1% INJ 50 ML MDV IJ ONE (08:55)
[2021-09-08] MEDS ORDERED: IODIXANOL 150 ML IV ONE (08:55)
[2021-09-08] MEDS ORDERED: MIDAZOLAM HCL 2 MG/2ML VIAL ONE (08:57)
[2021-09-08] MEDS ORDERED: FENTANYL PF 100MCG/2ML AMPUL ONE (08:57)
[2021-09-08] MEDS ORDERED: CLOPIDOGREL BISULFATE 75 MG TABLET PO SCH (09:00)
[2021-09-08] MEDS ORDERED: ASPIRIN EC 81 MG TABLET.DR PO SCH (09:00)
--- NOTE | 2021-09-08 10:15 | NUR ---
RN NOTES PATIENT RETURNED FROM CATHETERIZATION, IN STABLE CONDITION, T-BAND IN PLACE ON R WRIST, 17CC OF AIR PRESENT. WILL BEGIN DEFLATING 2 HOURS FROM NOW AT @1215
--- NOTE | 2021-09-08 10:38 | NUR ---
RN NOTES SPOKE TO DR. PATE, PATIENT CAN RESUME DIET AND TO D/C HEPARIN DRIP.
--- NOTE | 2021-09-08 11:38 | NUR ---
RN NOTES PATIENT BS CHECK 147, INSULIN COVERAGE REFUSED.
--- NOTE | 2021-09-08 12:30 | NUR ---
RN NOTES BEGINNING TO DEFLATE TR-BAND 3CC TAKEN OUT AT THIS TIME, NO S/S OF BLEEDING OR DISCOMFORT. WILL CONTINUE TO MONITOR.
--- NOTE | 2021-09-08 12:45 | NUR ---
RN NOTES BEGINNING TO DEFLATE TR-BAND 3CC TAKEN OUT AT THIS TIME, NO S/S OF BLEEDING OR DISCOMFORT. WILL CONTINUE TO MONITOR.
--- NOTE | 2021-09-08 13:00 | NUR ---
RN NOTES CONTINUING TO DEFLATE TR-BAND 3CC TAKEN OUT AT THIS TIME, NO S/S OF BLEEDING OR DISCOMFORT. WILL CONTINUE TO MONITOR.
--- NOTE | 2021-09-08 13:15 | NUR ---
RN NOTES CONTINUING TO DEFLATE TR-BAND 3CC TAKEN OUT AT THIS TIME, NO S/S OF BLEEDING OR DISCOMFORT. WILL CONTINUE TO MONITOR.
--- NOTE | 2021-09-08 13:30 | NUR ---
RN NOTES CONTINUING TO DEFLATE TR-BAND 3CC TAKEN OUT AT THIS TIME, NO S/S OF BLEEDING OR DISCOMFORT. ONLY 2 CC OF AIR REMAINING. WILL CONTINUE TO MONITOR.
--- NOTE | 2021-09-08 13:45 | NUR ---
RN NOTES CONTINUING TO DEFLATE TR-BAND 2CC TAKEN OUT AT THIS TIME, NO S/S OF BLEEDING OR DISCOMFORT. ALL 17 CC OF AIR REMOVED. TR-BAND REMOVED, NO S/S OF ACTIVE BLEEDING NOTED. Addendum: 09/08/21 at 1637 by AGUSTINA NUNES RN CORRECTION: TR-BAND REMOVED @1500, AFTER AIR WAS REMOVED.
[2021-09-08] MEDS: NITROGLYCERIN 0.1 MG/HR PATCH.TD24 TD SCH (16:28)
--- NOTE | 2021-09-08 16:52 | NUR ---
FOUNDRY PROCESS ENGINEER NOTES PATIENT DISCHARGED IN STABLE CONDITION, NO S/S OF PAIN, DISCOMFORT, SOB OR CARDIAC DISTRESS. A/O x4 ABLE TO MAKE NEEDS KNOWN. STABLE ON ROOM AIR. PATIENT IS CONTINENT AND AMBULATORY. SKIN IS INTACT. DISCHARGE AND HEALTH TEACHINGS GIVEN AND EXPLAINED TO PATIENT. PRESCRIBED AND HOME MEDICATION LIST GIVEN. ADVISED TO FOLLOW-UP WITH PCP. PATIENT VERBALIZED UNDERSTANDING. IV ACCESS REMOVED PRESSURE DRESSING APPLIED TO SITE, ID BAND REMOVED. TR-BAND SITE HAS NO ACTIVE BLEEDING, PRESSURE DRESSING STILL IN PLACE. EXTERNAL TELEMONITORING REMOVED. PATIENT LEFT UNIT @1650 ACCOMPANIED BY RNMICHAEL AND . LEFT IN A PRIVATE CAR.
== END 2021-09-08 17:30 | disposition home or self-care (01) | DRG 198 ==
LOC: ER 12:00 → TELE 15:21
PROVIDERS: ADMIT Internal Medicine; ATTEND Internal Medicine
DX: I25.110 Atherosclerotic heart disease of native coronary artery with unstable angina pectoris (principal); E11.9 Type 2 diabetes mellitus without complications; E66.01 Morbid (severe) obesity due to excess calories; Z68.42 Body mass index [BMI] 45.0-49.9, adult; E78.5 Hyperlipidemia, unspecified; I25.2 Old myocardial infarction; J44.9 Chronic obstructive pulmonary disease, unspecified; Z87.891 Personal history of nicotine dependence; Z20.822 Contact with and (suspected) exposure to COVID-19
CPT/HCPCS: 36415; 71045-TC; 80048-TC; 80053-TC; 80061-TC; 82962-TC; 83735-TC; 83880; 84100-TC; 84443-TC; 84484-TC; 85025-TC; 85610-TC; 85730-TC; 87081-TC; 93307-TC; C1887; C9803; G0378; G0500; J0360; J1644; J1815; J2250; J3010; J3490; J7030; Q9967